=== PATIENT | male | born 1955 | race Caucasian/White ===

== ENCOUNTER 2019-05-14 14:25 | Emergency (ER) | payer SELFPAY ==
[2019-05-14 14:36] VITALS: BP 133/66; PULSE 62; RESP 16; TEMP 36.7; O2SAT 96; BMI 23.7
--- NOTE | 2019-05-14 14:43 | XRR_ITS ---
PROCEDURE INFORMATION: Exam: XR Left Foot Complete Exam date and time: 05/14/2019 2:44 PM Age: 63 years old Clinical indication: Cellulitis; Foot; Left; Additional info: Redness/pain/swelling TECHNIQUE: Imaging protocol: XR Left foot. Views: 3 or more views. COMPARISON: No relevant prior studies available. FINDINGS: Bones/joints: There is hallux valgus and metatarsus adductus. No acute fracture or dislocation. No bony destruction or osteomyelitis. Probable old avulsion fracture of the tip of the fibula. There are mild degenerative changes in the midfoot and 1st MTP joint. Soft tissues: There is soft tissue edema. No gas in the soft tissues or foreign body. XR/XR foot LT min 3V* [id number] IMPRESSION: 1. There is soft tissue edema. 2. Chronic bony findings as above. No acute fracture, dislocation or osteomyelitis.
--- NOTE | 2019-05-14 14:43 | W.ED.EXTPRO ---
HPI - Extremity Problem General: Chief complaint: Extremity Problem,Nontraumatic Stated complaint: poss infection in toe Time Seen by Provider: 05/14/19 14:37 Source: patient Limitations: no limitations History of Present Illness: HPI Narrative: Patient is a 63-year-old male who presents to ED today with complaints of redness and pain to his left foot that he initially began noticing a few days ago. Patient reports no previous history of gout. He has had no acute injury or trauma to the foot. Reports he feels like there is redness streaking on his foot. MD Complaint: extremity pain Onset (ago): day(s) Pain Consistency: constant Location: left Quality: burning Radiation: proximal Relieving factors: nothing Exacerbating factors: nothing Associated symptoms: Reports no associated symptoms; Deny fever(s) Review of Systems Const: Denies: fever, chills, body aches, change in appetite, change in weight, fatigue or malaise Musc: Reports: extremity pain and redness; Denies: joint pain Skin/Breast: Reports: redness Neuro: Denies: numbness in extremities, weakness in extremities or changes in sensation PFSH ED PFSH: Social History Smoking and tobacco status: current every day smoker Physical Exam Const: COMMON NORMALS: no apparent distress, average body habitus, oriented x3, no limitations, healthy appearing, alert and well nourished Resp: COMMON NORMALS: normal respiratory effort and clear to auscultation bilaterally AUSCULTATION: clear to auscultation bilaterally Cardio: COMMON NORMALS: regular rate and regular rhythm RATE: regular rate RHYTHM: regular rhythm Extremity: OTHER: pt with onychomycosis to left great nail; there is redness to the dorsum of his great toe but most of the redness/warmth seems to be focused at the 1st MCP joint Neuro: COMMON NORMALS: oriented x3 SENSORIUM/ORIENTATION: Yes alert Skin: OTHER: see extremity assessment Course Vital Signs: Vital signs: Vital Signs Temperature 98.1 F 05/14/19 14:36 Pulse Rate 56 L 05/14/19 15:27 Respiratory Rate 16 05/14/19 14:36 Blood Pressure 130/66 05/14/19 15:27 Pulse Oximetry 95 05/14/19 15:27 MDM - Extremity (Nontraumatic) MDM Narrative: Medical decision making narrative: Patient's uric acid is elevated. He has a normal white count with normal vitals. At this time it appears patient most likely is having an acute gout attack and will be treated for such. Recommend he does follow-up with PCP early next week for reevaluation in case this does not begin improving. Lab Data: Labs: Lab Results 05/14/19 05/14/19 Range/Units 15:01 15:01 WBC 6.5 (4.0-10.0) 10^3/ uL RBC 4.90 (4.1-5.3) 10^6/u L Hgb 14.8 (11.7-16.6) g/dL Hct 44.5 (42.0-52.0) % MCV 90.8 (80-94) fL MCH 30.2 (28.0-34.0) pg MCHC 33.3 (30.0-36.0) g/dL RDW 13.5 (12.1-15.1) % Plt Count 144 (130-400) 10^3/c mm MPV 11.5 H (7.4-10.4) fL Neut % (Auto) 74.1 % Lymph % (Auto) 11.7 % Wallace % (Auto) 10.2 % Eos % (Auto) 3.4 % Baso % (Auto) 0.3 % Neut # (Auto) 4.8 (1.8-7.7) 10^3/u L Lymph # (Auto) 0.8 (0.8-4.8) 10^3/u L Wallace # (Auto) 0.7 (0.2-0.9) 10^3/u L Eos # (Auto) 0.2 (0.0-0.8) 10^3/u L Baso # (Auto) 0.0 (0.0-0.1) 10^3/u L Nucleated RBC % (a uto) 0 % Nucleated RBCs # 0.0 /100WBC Sodium 135 L (136-145) mmol/L Potassium 4.3 (3.5-5.1) mmol/L Chloride 99 (98-107) mmol/L Carbon Dioxide 26 (22-29) mmol/L Anion Gap 14.3 (5-19) BUN 22 (8-23) mg/dL Creatinine 1.8 H (0.7-1.2) mg/dL GFR Calculation 38.2 L (90-130) mL/min Glucose 233 H (65-115) mg/dL Uric Acid 7.9 H (3.4-7.0) mg/dL Calcium 9.4 (8.5-10.5) mg/dL Total Bilirubin 0.5 (0.15-1.2) mg/dL AST 21 (0-40) U/L ALT 33 (0-41) U/L Alkaline Phosphata se 126 (40-130) IU/L C-Reactive Protein 36.7 H (0.0-4.9) mg/L Total Protein 8.2 (6.6-8.7) g/dL Albumin 3.7 (3.5-5.2) g/dL Globulin 4.5 (1.3-4.6) g/dL Discharge Plan Discharge Patient Disposition: Home, Self-Care Clinical Impression: Gout Qualifiers: Gout site: toe Gout etiology: unspecified cause Chronicity: acute Laterality: left Qualified Code(s): M10.9 - Gout, unspecified Condition: Stable Prescriptions: New indomethacin 50 mg capsule 50 mg PO TID Qty: 20 RF: 0 Discharge Orders: Discharge Order (Routine); Ordered 05/14/19 Ordered By: Jina Bahena Patient Instructions: Gout Activity Restrictions/Additional Instructions: As discussed you need to follow-up with Dr. Pop's office next week for reevaluation. If you cannot get into their office and symptoms continue to worsen you need to follow-up here in the emergency department. 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
[2019-05-14 14:47] VITALS: O2SAT 95
--- NOTE | 2019-05-14 15:06 | PC.NURSE ---
portable xray at bedside
[2019-05-14 15:15] LABS: Basophils % 0.3 %; Eosinophils # 0.2 10^3/uL (0.0-0.8); Eosinophils % 3.4 %; Hematocrit 44.5 % (42.0-52.0); Hemoglobin 14.8 g/dL (11.7-16.6); Lymphocytes # 0.8 10^3/uL (0.8-4.8); Lymphocytes % 11.7 %; Mean Corpuscular HGB Conc 33.3 g/dL (30.0-36.0); Mean Corpuscular Hemoglobin 30.2 pg (28.0-34.0); Mean Corpuscular Volume 90.8 fL (80-94); Mean Platelet Volume 11.5 fL (7.4-10.4); Monocytes # 0.7 10^3/uL (0.2-0.9); Monocytes % 10.2 %; Neutrophils # 4.8 10^3/uL (1.8-7.7); Neutrophils % 74.1 %; Nucleated Red Blood Cells % 0 %; Platelet Count 144 10^3/cmm (130-400); Red Cell Distribution Width 13.5 % (12.1-15.1); White Blood Count 6.5 10^3/uL (4.0-10.0)
[2019-05-14 15:27] VITALS: BP 130/66; PULSE 56; O2SAT 95
[2019-05-14 15:29] LABS: Alanine Aminotransferase 33 U/L (0-41); Albumin Level 3.7 g/dL (3.5-5.2); Alkaline Phosphatase 126 IU/L (40-130); Anion Gap 14.3 (5-19); Aspartate Amino Transferase 21 U/L (0-40); Blood Urea Nitrogen 22 mg/dL (8-23); C Reactive Protein 36.7 mg/L (0.0-4.9); Calcium 9.4 mg/dL (8.5-10.5); Carbon Dioxide 26 mmol/L (22-29); Chloride 99 mmol/L (98-107); Globulin 4.5 g/dL (1.3-4.6); Glomerular Filtration Rate 38.2 mL/min (90-130); Glucose 233 mg/dL (65-115); Potassium 4.3 mmol/L (3.5-5.1); Sodium 135 mmol/L (136-145); Total Bilirubin 0.5 mg/dL (0.15-1.2); Total Protein 8.2 g/dL (6.6-8.7); Uric Acid 7.9 mg/dL (3.4-7.0)
[2019-05-14 16:00] VITALS: BP 155/69; PULSE 63; O2SAT 98
== END 2019-05-14 16:00 | disposition home or self-care (01) ==
PROVIDERS: Emergency Provider Physician Assistant
DX: M10.9 Gout, unspecified (principal); F17.200 Nicotine dependence, unspecified, uncomplicated
CPT/HCPCS: 36415; 73630; 80053; 84550; 85025; 86140; 99281; 99283

== ENCOUNTER 2019-09-30 09:09 | Outpatient (CLI) | payer SELFPAY ==
--- NOTE | 2019-09-30 09:30 | USCV_ITS ---
Loy Miller Age: 63 Gender: M : 1955 Exam Date: 09/30/2019 09:37 Ordering Phys: Nereyda Nelson MD ([email or web address]) Technologist: Blessing Guzman Exam Location: [facility] [place] Indication: CHF, CAD BP: / HR: Rhythm: Sinus Technical Quality: Adequate MEASUREMENTS (Male / Female) Normal Values 2D ECHO LV Diastolic Diameter PLAX 5.7 cm 4.2 - 5.9 / 3.9 - 5.3 cm LV Systolic Diameter PLAX 5.3 cm LV Chamber Size 4.0 cm IVS Diastolic Thickness 1.6 cm 0.6 - 1.0 / 0.6 - 0.9 cm IVS Systolic Thickness 1.3 cm LVPW Diastolic Thickness 1.1 cm 0.6 - 1.0 / 0.6 - 0.9 cm LVPW Systolic Thickness 1.1 cm RV Chamber Size 2.3 cm LVOT Diameter 2.0 cm LV Ejection Fraction 2D Teich 14.0 % LV Ejection Fraction MOD 2C 26.8 % LV Ejection Fraction 2C AL 25.2 % LA Diameter 4.3 cm LA Width 3.4 cm LA Height 4.4 cm RA Width 3.1 cm RA Height 3.9 cm Aorta at Sinotubular Diameter 3.6 cm M-MODE LV Diastolic Diameter MM 7.2 cm 4.2 - 5.9 / 3.9 - 5.3 cm LV Systolic Diameter MM 5.3 cm LV Ejection Fraction MM Teich 50.1 % IVS Diastolic Thickness MM 0.7 cm 0.6 - 1.0 / 0.6 - 0.9 cm IVS Systolic Thickness MM 1.4 cm LVPW Diastolic Thickness MM 1.1 cm 0.6 - 1.0 / 0.6 - 0.9 cm LVPW Systolic Thickness MM 1.7 cm RV Diastolic Diameter MM 1.4 cm Aortic Annulus Diameter 3.9 cm LA Ao Ratio MM 1.1 MV E Point Septal Separation 3.9 cm DOPPLER AV Peak Velocity 117.0 cm/s LVOT Peak Velocity 66.0 cm/s AV Area Cont Eq vti 2.7 cm squared AV Area Cont Eq pk 1.8 cm squared MV Area PHT 5.6 cm squared Mitral E to A Ratio 0.5 MV E' Velocity 11.0 cm/s Mitral E to MV E' Ratio 3.8 Mitral E to LV E' Lateral Ratio 3.3 Mitral E to LV E' Septal Ratio 4.7 TV Peak E Velocity 54.0 cm/s PV Peak Velocity 65.0 cm/s RV Acceleration Time 0.1 s RV Ejection Time 0.3 s RV AcT/ET 0.4 FINDINGS Left Ventricle Dilated left ventricle. Severely decreased left ventricular systolic function. Left ventricular ejection fraction is estimated at 10-15 %. Severe global hypokinesis. Grade 1 diastolic dysfunction with normal to mildly elevated filling pressure. Right Ventricle Normal right ventricular size and systolic function. Tricuspid valve regurgitant jet is inadequate for estimation of right ventricular systolic pressure. Right Atrium Normal right atrial size. Right atrial pressure estimated at 3 mmHg. Left Atrium Upper normal left atrial size. Mitral Valve Mildly thickened mitral valve. Trace mitral valve regurgitation. Aortic Valve Aortic valve not well visualized. No aortic valve stenosis. No aortic valve regurgitation. Tricuspid Valve Structurally normal tricuspid valve. Trace to mild tricuspid valve regurgitation. Pulmonic Valve Structurally normal pulmonic valve. No pulmonary valve stenosis. Trace pulmonary valve regurgitation. Pericardium No pericardial effusion. Aorta Normal-sized aortic root. CONCLUSIONS 1. Dilated left ventricle. Severely decreased left ventricular systolic function. Left ventricular ejection fraction is estimated at 10-15 %. Severe global hypokinesis. Grade 1 diastolic dysfunction with normal to mildly elevated filling pressure. 2. Normal right ventricular size and systolic function. 3. Trace to mild tricuspid valve regurgitation. 4. When compared to previous echocardiogram dated 11/25/2012, there may not have been any significant change. Nereyda Nelson MD (Electronically Signed) Final Date: 05 October 2019 12:12 S
== END 2019-09-30 09:10 | disposition home or self-care (01) ==
PROVIDERS: PCP Family Medicine; Visit Provider Internal Medicine Cardiovascular Disease
DX: I50.9 Heart failure, unspecified (principal); I25.10 Atherosclerotic heart disease of native coronary artery without angina pectoris; I07.1 Rheumatic tricuspid insufficiency
CPT/HCPCS: 93306